=== PATIENT | male | born 1955 | race African-American/Black ===

== ENCOUNTER 2017-07-18 12:54 | Inpatient (IN) | payer OTHER ==
[~2017-07-18] VITALS: Ht 175.3 cm; Wt 87.5 kg
[2017-07-18 14:26] VITALS: BP 186/95
[2017-07-18] MEDS ORDERED: DOCUSATE 100 MG CAPSULE PO PRN (15:30)
[2017-07-18] MEDS ORDERED: POLYETHYLENE GLYCOL 17 GM PACKET PO PRN (15:30)
[2017-07-18] MEDS ORDERED: BISACODYL 10 MG SUPP PR PRN (15:30)
[2017-07-18] MEDS ORDERED: ONDANSETRON 2MG/ML, 2ML IVPush PRN (15:30)
[2017-07-18 16:16] LABS: HEMATOCRIT 39.9 % (39.2-51.8); HEMOGLOBIN 13.1 g/dL (13.7-18.0); WHITE BLOOD COUNT 19.9 x10^3/uL (3.4-10)
[2017-07-18] MEDS: DOXYCYCLINE 100 MG in DEXTROSE 5% 250 ML IV SCH (16:20)
[2017-07-18] MEDS: HEPARIN 5,000 UNITS/ML, 1ML SQ SCH ×2 (16:20→23:28)
[2017-07-18] MEDS: CEFTRIAXONE PMX 1GM/50ML 50 ML IV SCH (16:20)
[2017-07-18 16:26] LABS: BLOOD UREA NITROGEN 18 mg/dL (7-18)
[2017-07-18 16:41] LABS: DIFF TOTAL CELLS COUNTED 100 CELL DIFF
[2017-07-18 16:47] LABS: VERIFY COUNTS? YES
[2017-07-18 16:50] LABS: ANISOCYTOSIS 1+
[2017-07-18] MEDS ORDERED: ALBUTEROL/IPRATROPIUM 2.5MG/0.5MG, 3 ML NPPB PRN (17:30)
[2017-07-18 18:18] LABS: RAPID INFLUENZA A Negative (Negative); RAPID INFLUENZA B Negative (Negative)
[2017-07-18 18:20] VITALS: BP 168/91
[2017-07-18] MEDS: ACETAMINOPHEN 325 MG TABLET PO PRN (18:24)
[2017-07-18] MEDS ORDERED: ALBUTEROL/IPRATROPIUM 2.5MG/0.5MG, 3 ML ONE (18:49)
[2017-07-18] MEDS: SODIUM CHLORIDE FLUSH 10ML SYR IVF SCH (20:05)
[2017-07-18] MEDS: GUAIFENESIN ER 600 MG TABLET PO SCH (20:05)
[2017-07-18 20:35] VITALS: BP 150/89
[2017-07-18] MEDS: ALBUTEROL/IPRATROPIUM 2.5MG/0.5MG, 3 ML NPPB SCH (23:18)
[2017-07-19] VITALS (7 sets, daily range): BP systolic 151–192; BP diastolic 61–98
[2017-07-19] MEDS: DOXYCYCLINE 100 MG in DEXTROSE 5% 250 ML IV SCH ×2 (03:27→15:24)
[2017-07-19 05:41] LABS: HEMATOCRIT 36.9 % (39.2-51.8); HEMOGLOBIN 12.1 g/dL (13.7-18.0); WHITE BLOOD COUNT 16.5 x10^3/uL (3.4-10)
[2017-07-19 06:15] LABS: ASPARTATE AMINO TRANSFERASE 62 U/L (15-37); BLOOD UREA NITROGEN 15 mg/dL (7-18)
[2017-07-19] MEDS: ALBUTEROL/IPRATROPIUM 2.5MG/0.5MG, 3 ML NPPB SCH ×4 (06:47→19:26)
[2017-07-19] MEDS ORDERED: hydrALAzine 20 MG/ML, 1ML ONE (07:10)
[2017-07-19] MEDS ORDERED: LORazepam 2 MG/ML, 1ML ONE (07:10)
[2017-07-19] MEDS: LORazepam 2 MG/ML, 1ML IVPush PRN ×3 (07:14→18:14)
[2017-07-19] MEDS ORDERED: hydrALAzine 20 MG/ML, 1ML IV ONE (07:30)
[2017-07-19] MEDS: GUAIFENESIN ER 600 MG TABLET PO SCH ×2 (08:19→21:19)
[2017-07-19] MEDS: SODIUM CHLORIDE FLUSH 10ML SYR IVF SCH ×2 (08:19→21:00)
[2017-07-19] MEDS: HEPARIN 5,000 UNITS/ML, 1ML SQ SCH ×2 (08:19→16:30)
[2017-07-19] MEDS: LABETALOL 5MG/ML, 20ML IVPush PRN ×2 (13:11→18:34)
[2017-07-19] MEDS: CEFTRIAXONE PMX 1GM/50ML 50 ML IV SCH (16:30)
[2017-07-19] MEDS: ACETAMINOPHEN 325 MG TABLET PO PRN (18:33)
[2017-07-20] MEDS: ALBUTEROL/IPRATROPIUM 2.5MG/0.5MG, 3 ML NPPB SCH ×4 (00:02→11:00)
[2017-07-20 02:10] VITALS: BP 154/90
[2017-07-20] MEDS: DOXYCYCLINE 100 MG in DEXTROSE 5% 250 ML IV SCH ×2 (03:51→16:18)
[2017-07-20] MEDS: HEPARIN 5,000 UNITS/ML, 1ML SQ SCH ×3 (03:52→17:17)
[2017-07-20] MEDS: LORazepam 2 MG/ML, 1ML IVPush PRN ×3 (04:35→18:29)
[2017-07-20 06:34] LABS: HEMATOCRIT 39.3 % (39.2-51.8); WHITE BLOOD COUNT 12.9 x10^3/uL (3.4-10)
[2017-07-20 06:44] LABS: BLOOD UREA NITROGEN 14 mg/dL (7-18)
[2017-07-20 06:54] LABS: DIFF TOTAL CELLS COUNTED 100 CELL DIFF
[2017-07-20 06:56] LABS: ANISOCYTOSIS 1+; VERIFY COUNTS? YES
[2017-07-20 06:57] LABS: LARGE PLATELETS 1+
[2017-07-20 07:29] VITALS: BP 133/85
[2017-07-20] MEDS: GUAIFENESIN ER 600 MG TABLET PO SCH ×2 (08:51→23:34)
[2017-07-20] MEDS: SODIUM CHLORIDE FLUSH 10ML SYR IVF SCH ×2 (09:18→23:34)
[2017-07-20] MEDS: KETOROLAC 30 MG/1 ML IVPush PRN ×2 (12:00→18:29)
[2017-07-20 14:00] VITALS: BP 144/91
[2017-07-20] MEDS: CEFTRIAXONE PMX 1GM/50ML 50 ML IV SCH (17:17)
[2017-07-20] MEDS: ALBUTEROL SULFATE 2.5 MG/3 ML NPPB PRN (19:21)
[2017-07-20 19:30] VITALS: BP 149/89
[2017-07-20] MEDS ORDERED: TEMAZEPAM 15 MG CAPSULE PO PRN (20:30)
[2017-07-21 03:20] VITALS: BP 132/83
[2017-07-21] MEDS: DOXYCYCLINE 100 MG in DEXTROSE 5% 250 ML IV SCH (03:22)
[2017-07-21] MEDS: HEPARIN 5,000 UNITS/ML, 1ML SQ SCH (03:22)
[2017-07-21 05:48] LABS: HEMOGLOBIN 12.6 g/dL (13.7-18.0); WHITE BLOOD COUNT 14.4 x10^3/uL (3.4-10)
[2017-07-21 06:02] LABS: BLOOD UREA NITROGEN 16 mg/dL (7-18)
[2017-07-21] MEDS: ALBUTEROL SULFATE 2.5 MG/3 ML NPPB PRN ×2 (06:52→11:30)
[2017-07-21 07:01] VITALS: BP 124/77
[2017-07-21] MEDS ORDERED: CEFD300C37 PO (07:45)
[2017-07-21] MEDS ORDERED: DOXY100T PO (07:45)
[2017-07-21] MEDS: SODIUM CHLORIDE FLUSH 10ML SYR IVF SCH (08:42)
[2017-07-21] MEDS: GUAIFENESIN ER 600 MG TABLET PO SCH (08:42)
[2017-07-21] MEDS: ACETAMINOPHEN 325 MG TABLET PO PRN (08:44)
== END 2017-07-21 12:44 | disposition home or self-care (01) | DRG 871 ==
LOC: 3NE 13:56
PROVIDERS: ADMIT Internal Medicine; ATTEND Internal Medicine
DX: A41.9 Sepsis, unspecified organism (principal); J18.1 Lobar pneumonia, unspecified organism; F20.9 Schizophrenia, unspecified; F17.210 Nicotine dependence, cigarettes, uncomplicated; I10 Essential (primary) hypertension; Z82.49 Family history of ischemic heart disease and other diseases of the circulatory system; Z83.3 Family history of diabetes mellitus; Z85.038 Personal history of other malignant neoplasm of large intestine
CPT/HCPCS: 36415; 71010; 80048; 80053; 85025; 87040; 87070; 87205; 87400; 93005; 94640; J0696; J1644; J1885; J2405; J7060; J7613; J7620; J0360; J2060

== ENCOUNTER 2018-09-05 13:54 | Inpatient (IN) | payer OTHER ==
[~2018-09-05] VITALS: Ht 175.3 cm; Wt 93.6 kg
[~2018-09-05 13:54] MED LIST: ASPI81TA45 PO; CEFD300C37 PO; DOXY100T PO
[2018-09-05] MEDS ORDERED: PANTOPRAZOLE 40 MG IV IVPush ONE (14:00)
[2018-09-05] MEDS ORDERED: SODIUM CHLORIDE FLUSH 10ML SYR IVF ONE (14:00)
[2018-09-05 14:28] LABS: BASOPHILS # (AUTO) 0.07 x10^3/uL (0-0.1); BASOPHILS % (AUTO) 1 % (0-1); EOSINOPHILS # (AUTO) 0.17 x10^3/uL (0-0.4); EOSINOPHILS % (AUTO) 1 % (1-7); LYMPHOCYTES # (AUTO) 3.96 x10^3/uL (1-3.4); LYMPHOCYTES % (AUTO) 30 % (22-44); MD NO; MEAN CORPUSCULAR HEMOGLOBIN 27.1 pg (27.5-34.5); MEAN CORPUSCULAR HGB CONC 32.1 g/dL (33.2-36.2); MEAN CORPUSCULAR VOLUME 84.4 fL (81-97); MEAN PLATELET VOLUME 7.9 fL (7.4-10.4); MONOCYTES # (AUTO) 0.89 x10^3/uL (0.2-0.8); MONOCYTES % (AUTO) 7 % (2-9); NEUTROPHILS # (AUTO) 8.22 x10^3/uL (1.8-6.8); NEUTROPHILS % (AUTO) 62 % (42-75); PLATELET COUNT 398 x10^3/uL (130-400); RED BLOOD COUNT 3.55 x10^6/uL (4.38-5.82)
[2018-09-05 14:29] LABS: ANION GAP 10 mmol/L (5-15); CALCIUM 8.1 mg/dL (8.5-10.1); CHLORIDE 110 mmol/L (98-107); CREATININE 1.22 mg/dL (0.7-1.3); INTERNATIONAL NORMALIZED RATIO 1.05 (0.93-1.1); PROTHROMBIN TIME 11.1 Seconds (9.6-11.5)
[2018-09-05 14:30] LABS: ALANINE AMINOTRANSFERASE 27 U/L (12-78); ALBUMIN 2.9 g/dL (3.4-5.0)
[2018-09-05 14:32] LABS: ALKALINE PHOSPHATASE 64 U/L (45-117); BILIRUBIN,TOTAL 0.2 mg/dL (0.2-1.0); TOTAL PROTEIN 6.9 g/dL (6.4-8.2)
[2018-09-05] MEDS ORDERED: PANTOPRAZOLE 40 MG IV ONE (14:32)
[2018-09-05] MEDS ORDERED: ARIP15TA3 PO (14:47)
[2018-09-05] MEDS ORDERED: ALBU0.63 NEB (14:47)
[2018-09-05] MEDS ORDERED: CETI-237 PO (14:47)
[2018-09-05] MEDS ORDERED: TAMS0.4C2 PO (14:47)
[2018-09-05] MEDS ORDERED: AMLO10TA6 PO (14:47)
[2018-09-05] MEDS ORDERED: MELO7.5T31 PO (14:47)
[2018-09-05] MEDS ORDERED: HYDR10TA4 PO (14:47)
[2018-09-05] MEDS ORDERED: ONDANSETRON 2MG/ML, 2ML IV PRN (16:30)
[2018-09-05] MEDS ORDERED: ACETAMINOPHEN 325 MG TABLET PO ONE (16:30)
[2018-09-05] MEDS: PANTOPRAZOLE 40 MG IV IVPush SCH (16:30)
[2018-09-05 17:31] LABS: MICROSCOPIC NOT IND
[2018-09-05 17:34] LABS: CULTURE INDICATED? NO
[2018-09-05] MEDS: D5%-0.45% NACL 1,000 ML IV SCH (18:30)
[2018-09-05 18:35] VITALS: BP 134/77
[2018-09-05] MEDS ORDERED: ALBUTEROL SULFATE 2.5 MG/3 ML NPPB PRN (19:00)
[2018-09-05 19:47] VITALS: BP 134/77
[2018-09-06 00:47] VITALS: BP 123/71
[2018-09-06 02:12] LABS: ANION GAP 7 mmol/L (5-15); CALCIUM 8.1 mg/dL (8.5-10.1); CHLORIDE 109 mmol/L (98-107); CREATININE 1.14 mg/dL (0.7-1.3)
[2018-09-06] MEDS: D5%-0.45% NACL 1,000 ML IV SCH ×2 (04:11→14:45)
[2018-09-06] MEDS: PANTOPRAZOLE 40 MG IV IVPush SCH ×2 (04:12→16:11)
[2018-09-06] MEDS ORDERED: ASPIRIN 81 MG TABLET EC PO SCH (06:00)
[2018-09-06 07:28] VITALS: BP 116/74
[2018-09-06 08:18] LABS: BASOPHILS # (AUTO) 0.05 x10^3/uL (0-0.1); BASOPHILS % (AUTO) 1 % (0-1); EOSINOPHILS # (AUTO) 0.38 x10^3/uL (0-0.4); EOSINOPHILS % (AUTO) 4 % (1-7); LYMPHOCYTES # (AUTO) 3.84 x10^3/uL (1-3.4); LYMPHOCYTES % (AUTO) 41 % (22-44); MD NO; MEAN CORPUSCULAR HEMOGLOBIN 27.5 pg (27.5-34.5); MEAN CORPUSCULAR HGB CONC 32.5 g/dL (33.2-36.2); MEAN CORPUSCULAR VOLUME 84.4 fL (81-97); MEAN PLATELET VOLUME 7.6 fL (7.4-10.4); MONOCYTES # (AUTO) 0.91 x10^3/uL (0.2-0.8); MONOCYTES % (AUTO) 10 % (2-9); NEUTROPHILS # (AUTO) 4.23 x10^3/uL (1.8-6.8); NEUTROPHILS % (AUTO) 45 % (42-75); PLATELET COUNT 428 x10^3/uL (130-400); RED BLOOD COUNT 3.24 x10^6/uL (4.38-5.82); RED CELL DISTRIBUTION WIDTH 14.2 % (9.4-14.8)
[2018-09-06] MEDS: TAMSULOSIN 0.4 MG CAP.ER.24H PO SCH (09:00)
[2018-09-06] MEDS: AMLODIPINE 2.5 MG TABLET PO SCH (09:00)
[2018-09-06] MEDS: ARIPIPRAZOLE 15 MG TABLET PO SCH ×2 (09:00→14:00)
[2018-09-06 13:14] VITALS: BP 104/67
[2018-09-06] MEDS ORDERED: FENTANYL PF 100 MCG/2ML ONE (13:35)
[2018-09-06] MEDS ORDERED: MIDAZOLAM 1 MG/ML, 2ML ONE (13:35)
[2018-09-06] MEDS ORDERED: PROPOFOL 10 MG/ML, 20ML ONE (13:40)
[2018-09-06] MEDS ORDERED: FENTANYL PF 100 MCG/2ML IV PRN (14:30)
[2018-09-06] MEDS ORDERED: ONDANSETRON 2MG/ML, 2ML IV PRN (14:30)
[2018-09-06] MEDS ORDERED: OXYcodone 5 MG/5 ML ORAL.SOL UDC PO PRN (14:30)
[2018-09-06] MEDS ORDERED: MEPERIDINE/PF 25MG/0.5ML IVPush PRN (14:30)
[2018-09-06] MEDS ORDERED: HALOPERIDOL 5 MG/ML IV PRN (14:30)
[2018-09-06] MEDS ORDERED: LORazepam 2 MG/ML, 1ML IVPush PRN (14:30)
[2018-09-06] MEDS ORDERED: HYDROmorphone 2 MG/ML, 1ML IVPush PRN (14:30)
[2018-09-06] MEDS: PANTOPROZOLE 40MG TABLET PO SCH (17:00)
[2018-09-06 19:10] VITALS: BP 130/75
[2018-09-07 00:39] VITALS: BP 132/80
[2018-09-07] MEDS: D5%-0.45% NACL 1,000 ML IV SCH (01:51)
[2018-09-07] MEDS: PANTOPROZOLE 40MG TABLET PO SCH ×2 (06:00→17:37)
[2018-09-07 06:51] VITALS: BP 154/80
[2018-09-07 07:18] LABS: BASOPHILS # (AUTO) 0.06 x10^3/uL (0-0.1); BASOPHILS % (AUTO) 1 % (0-1); EOSINOPHILS # (AUTO) 0.44 x10^3/uL (0-0.4); EOSINOPHILS % (AUTO) 5 % (1-7); LYMPHOCYTES # (AUTO) 2.77 x10^3/uL (1-3.4); LYMPHOCYTES % (AUTO) 33 % (22-44); MD NO; MEAN CORPUSCULAR HEMOGLOBIN 27.8 pg (27.5-34.5); MEAN CORPUSCULAR HGB CONC 32.7 g/dL (33.2-36.2); MEAN CORPUSCULAR VOLUME 85.1 fL (81-97); MEAN PLATELET VOLUME 7.5 fL (7.4-10.4); MONOCYTES # (AUTO) 0.88 x10^3/uL (0.2-0.8); MONOCYTES % (AUTO) 10 % (2-9); NEUTROPHILS # (AUTO) 4.38 x10^3/uL (1.8-6.8); NEUTROPHILS % (AUTO) 51 % (42-75); PLATELET COUNT 468 x10^3/uL (130-400); RED BLOOD COUNT 3.21 x10^6/uL (4.38-5.82); RED CELL DISTRIBUTION WIDTH 14.2 % (9.4-14.8)
[2018-09-07 07:26] LABS: ANION GAP 9 mmol/L (5-15); CALCIUM 8.2 mg/dL (8.5-10.1); CHLORIDE 109 mmol/L (98-107); CREATININE 1.06 mg/dL (0.7-1.3)
[2018-09-07] MEDS: ARIPIPRAZOLE 15 MG TABLET PO SCH (09:00)
[2018-09-07] MEDS: TAMSULOSIN 0.4 MG CAP.ER.24H PO SCH (09:22)
[2018-09-07] MEDS: AMLODIPINE 2.5 MG TABLET PO SCH (09:24)
[2018-09-07 13:35] VITALS: BP 149/78
[2018-09-07 18:58] VITALS: BP 157/76
[2018-09-07] MEDS ORDERED: ACETAMINOPHEN 325 MG TABLET PO PRN (19:00)
[2018-09-08 00:10] VITALS: BP 142/80
[2018-09-08] MEDS: PANTOPROZOLE 40MG TABLET PO SCH ×2 (06:07→17:30)
[2018-09-08 07:26] VITALS: BP 130/80
[2018-09-08] MEDS: ARIPIPRAZOLE 15 MG TABLET PO SCH (08:57)
[2018-09-08] MEDS: AMLODIPINE 2.5 MG TABLET PO SCH (08:57)
[2018-09-08] MEDS: TAMSULOSIN 0.4 MG CAP.ER.24H PO SCH (08:57)
[2018-09-08 14:24] VITALS: BP 118/69
[2018-09-08 19:18] VITALS: BP 127/74
[2018-09-09 00:30] VITALS: BP 132/78
[2018-09-09 05:32] LABS: BASOPHILS # (AUTO) 0.07 x10^3/uL (0-0.1); BASOPHILS % (AUTO) 1 % (0-1); EOSINOPHILS # (AUTO) 0.38 x10^3/uL (0-0.4); EOSINOPHILS % (AUTO) 4 % (1-7); LYMPHOCYTES # (AUTO) 2.97 x10^3/uL (1-3.4); LYMPHOCYTES % (AUTO) 32 % (22-44); MD NO; MEAN CORPUSCULAR HEMOGLOBIN 27.9 pg (27.5-34.5); MEAN CORPUSCULAR HGB CONC 32.9 g/dL (33.2-36.2); MEAN CORPUSCULAR VOLUME 84.8 fL (81-97); MEAN PLATELET VOLUME 7.2 fL (7.4-10.4); MONOCYTES # (AUTO) 1.14 x10^3/uL (0.2-0.8); MONOCYTES % (AUTO) 12 % (2-9); NEUTROPHILS # (AUTO) 4.75 x10^3/uL (1.8-6.8); NEUTROPHILS % (AUTO) 51 % (42-75); PLATELET COUNT 575 x10^3/uL (130-400); RED BLOOD COUNT 3.48 x10^6/uL (4.38-5.82); RED CELL DISTRIBUTION WIDTH 14.1 % (9.4-14.8)
[2018-09-09 05:37] LABS: ANION GAP 9 mmol/L (5-15); CALCIUM 8.8 mg/dL (8.5-10.1); CHLORIDE 108 mmol/L (98-107); CREATININE 1.16 mg/dL (0.7-1.3)
[2018-09-09] MEDS: PANTOPROZOLE 40MG TABLET PO SCH ×2 (06:24→17:32)
[2018-09-09 07:15] VITALS: BP 134/75
[2018-09-09] MEDS: ARIPIPRAZOLE 15 MG TABLET PO SCH (09:00)
[2018-09-09] MEDS: AMLODIPINE 2.5 MG TABLET PO SCH (10:19)
[2018-09-09] MEDS: TAMSULOSIN 0.4 MG CAP.ER.24H PO SCH (10:19)
[2018-09-09 13:17] VITALS: BP 124/79
[2018-09-09 19:46] VITALS: BP 119/77
[2018-09-09] MEDS: hydrOXyzine 10MG TABLET PO PRN (22:11)
[2018-09-10 01:14] VITALS: BP 136/84
[2018-09-10 04:50] LABS: BASOPHILS # (AUTO) 0.09 x10^3/uL (0-0.1); BASOPHILS % (AUTO) 1 % (0-1); EOSINOPHILS # (AUTO) 0.48 x10^3/uL (0-0.4); EOSINOPHILS % (AUTO) 5 % (1-7); LYMPHOCYTES # (AUTO) 3.34 x10^3/uL (1-3.4); LYMPHOCYTES % (AUTO) 31 % (22-44); MD NO; MEAN CORPUSCULAR HEMOGLOBIN 27.2 pg (27.5-34.5); MEAN CORPUSCULAR HGB CONC 32.2 g/dL (33.2-36.2); MEAN CORPUSCULAR VOLUME 84.6 fL (81-97); MEAN PLATELET VOLUME 7.2 fL (7.4-10.4); MONOCYTES # (AUTO) 0.93 x10^3/uL (0.2-0.8); MONOCYTES % (AUTO) 9 % (2-9); NEUTROPHILS # (AUTO) 5.81 x10^3/uL (1.8-6.8); NEUTROPHILS % (AUTO) 55 % (42-75); PLATELET COUNT 583 x10^3/uL (130-400); RED BLOOD COUNT 3.77 x10^6/uL (4.38-5.82); RED CELL DISTRIBUTION WIDTH 14.6 % (9.4-14.8)
[2018-09-10 05:03] LABS: ANION GAP 7 mmol/L (5-15); CHLORIDE 107 mmol/L (98-107); CREATININE 1.08 mg/dL (0.7-1.3)
[2018-09-10] MEDS: PANTOPROZOLE 40MG TABLET PO SCH (05:34)
[2018-09-10 06:51] VITALS: BP 117/68
[2018-09-10] MEDS: ARIPIPRAZOLE 15 MG TABLET PO SCH (09:00)
[2018-09-10 09:27] VITALS: BP 128/75
[2018-09-10] MEDS: AMLODIPINE 2.5 MG TABLET PO SCH (09:29)
[2018-09-10] MEDS: TAMSULOSIN 0.4 MG CAP.ER.24H PO SCH (09:29)
[2018-09-10] MEDS: hydrOXyzine 10MG TABLET PO PRN (10:13)
[2018-09-10 12:26] VITALS: BP 128/80
[2018-09-10] MEDS ORDERED: PANT40TA5 PO (14:22)
== END 2018-09-10 15:17 | disposition home or self-care (01) | DRG 381 ==
LOC: ED 16:05 → EDIP 16:06 → ED 16:40 → 4EST 18:31
PROVIDERS: ADMIT Internal Medicine; ATTEND Internal Medicine
PROC: 0DB38ZX Excision of Lower Esophagus, Via Natural or Artificial Opening Endoscopic, Diagnostic (ICD-10-PCS; 2018-09-06)
PROC: 0DB68ZX Excision of Stomach, Via Natural or Artificial Opening Endoscopic, Diagnostic (ICD-10-PCS; principal; 2018-09-06 13:30)
DX: K22.11 Ulcer of esophagus with bleeding (principal); R45.851 Suicidal ideations; F14.20 Cocaine dependence, uncomplicated; D62 Acute posthemorrhagic anemia; E44.1 Mild protein-calorie malnutrition; K29.81 Duodenitis with bleeding; K29.61 Other gastritis with bleeding; D72.829 Elevated white blood cell count, unspecified; E11.9 Type 2 diabetes mellitus without complications; F15.90 Other stimulant use, unspecified, uncomplicated; F17.210 Nicotine dependence, cigarettes, uncomplicated; F20.9 Schizophrenia, unspecified; K21.0 Gastro-esophageal reflux disease with esophagitis; K44.9 Diaphragmatic hernia without obstruction or gangrene; F41.9 Anxiety disorder, unspecified; K59.00 Constipation, unspecified; M19.90 Unspecified osteoarthritis, unspecified site; N40.0 Benign prostatic hyperplasia without lower urinary tract symptoms; Z79.1 Long term (current) use of non-steroidal anti-inflammatories (NSAID); Z80.9 Family history of malignant neoplasm, unspecified; Z85.038 Personal history of other malignant neoplasm of large intestine; Z71.51 Drug abuse counseling and surveillance of drug abuser; T39.395A Adverse effect of other nonsteroidal anti-inflammatory drugs [NSAID], initial encounter; K26.4 Chronic or unspecified duodenal ulcer with hemorrhage
CPT/HCPCS: 36415; 80048; 80053; 81003; 83690; 85014; 85018; 85025; 85610; 85730; 86850; 86900; 88305; 96374; 99285; G0378; J2250; J2704; J3010; C9113